=== PATIENT | male | born 1940 | race Caucasian/White ===

== ENCOUNTER 2017-05-01 16:16 | Emergency (ER) | payer MEDICARE, OTHER ==
[2017-05-01 16:22] VITALS: BP 111/60
--- NOTE | 2017-05-01 16:27 | ER Document Report ---
ED Medical Screen (RME) - General Chief Complaint: Hand Swelling Stated Complaint: SWOLLEN LEFT HAND Time Seen by Provider: 05/01/17 16:24 Mode of Arrival: Ambulatory Information source: Patient, Relative TRAVEL OUTSIDE OF THE [place] IN LAST 30 DAYS: No - HPI Patient complains to provider of: swelling L hand Onset: This morning - Pt. has h/o dementia and developed swelling of his L hand yessterday. Denies trauma, insect bite or sting - Related Data Allergies/Adverse Reactions: No Known Allergies Allergy (Verified 05/01/17 16:21) Past Medical History - Past Medical History Cardiac Medical History: Reports: Hx Coronary Artery Disease, Hx Hypertension Denies: Hx Heart Attack Pulmonary Medical History: Denies: Hx Asthma, Hx Bronchitis, Hx COPD, Hx Pneumonia Neurological Medical History: Denies: Hx Cerebrovascular Accident, Hx Seizures Renal/ Medical History: Reports: Hx Benign Prostatic Hyperplasia. Denies: Hx Peritoneal Dialysis Musculoskeltal Medical History: Reports Hx Arthritis Psychiatric Medical History: Reports: Hx Dementia - Son says the patient's developing some memory issues - Immunizations Hx Diphtheria, Pertussis, Tetanus Vaccination: Yes Physical Exam - Vital signs Vitals: Temp Pulse Resp BP Pulse Ox 97.8 F 103 H 18 111/60 94 05/01/17 16:21 05/01/17 16:21 05/01/17 16:21 05/01/17 16:21 05/01/17 16:21 Course - Vital Signs Vital signs: Temp Pulse Resp BP Pulse Ox 97.8 F 103 H 18 111/60 94 05/01/17 16:21 05/01/17 16:21 05/01/17 16:21 05/01/17 16:21 05/01/17 16:21
[2017-05-01 16:56] LABS: ABSOLUTE LYMPHOCYTES (AUTO) 0.7 10^3/uL (0.5-4.7); ABSOLUTE MONOCYTES (AUTO) 0.6 10^3/uL (0.1-1.4); ABSOLUTE NEUT (AUTO) 8.2 10^3/uL (1.7-8.2); BASOPHILS % (AUTO) 0.1 % (0-2); EOSINOPHILS % (AUTO) 0.2 % (0-6); HEMATOCRIT 43.3 % (37.9-51.0); HEMOGLOBIN 14.5 g/dL (13.5-17.0); HGB HCT DIFFERENCE 0.2; LYMPHOCYTES % (AUTO) 6.9 % (13-45); MEAN CORPUSCULAR HEMOGLOBIN 31.3 pg (27.0-33.4); MEAN CORPUSCULAR HGB CONC 33.5 g/dL (32.0-36.0); MEAN CORPUSCULAR VOLUME 93 fl (80-97); MONOCYTES % (AUTO) 6.4 % (3-13); RED BLOOD COUNT 4.64 10^6/uL (4.35-5.55); RED CELL DISTRIBUTION WIDTH 14.3 % (11.5-14.0); SEGMENTED NEUTROPHILS % (AUTO) 86.4 % (42-78); WHITE BLOOD COUNT 9.5 10^3/uL (4.0-10.5)
[2017-05-01 17:11] LABS: ALANINE AMINOTRANSFERASE 270 U/L (21-72); ALBUMIN 4.1 g/dL (3.5-5.0); ALKALINE PHOSPHATASE 165 U/L (38-126); ANION GAP 14 (5-19); ASPARTATE AMINO TRANSFERASE 293 U/L (17-59); BILIRUBIN,DIRECT 1.2 mg/dL (0.0-0.4); BILIRUBIN,TOTAL 2.3 mg/dL (0.2-1.3); BLOOD UREA NITROGEN 13 mg/dL (7-20); CALCIUM 9.2 mg/dL (8.4-10.2); CARBON DIOXIDE 25 mmol/L (22-30); CHLORIDE 101 mmol/L (98-107); CREATININE RESULT 0.88 mg/dL (0.52-1.25); GLUCOSE 107 mg/dL (75-110); SODIUM 139.6 mmol/L (137-145); TOTAL PROTEIN 6.6 g/dL (6.3-8.2)
--- NOTE | 2017-05-01 17:47 | ER Document Report ---
ED Hand/Wrist Injury - General Mode of Arrival: Ambulatory Information source: Patient, Relative TRAVEL OUTSIDE OF THE [place] IN LAST 30 DAYS: No <DEON ABLRIGHT - Last Filed: 05/01/17 20:51> <MARCELO RICO - Last Filed: 05/01/17 22:47> - General Chief Complaint: Hand Swelling Stated Complaint: SWOLLEN LEFT HAND Time Seen by Provider: 05/01/17 16:24 - HPI Notes: Patient is a 76-year-old male presented emergency department for swelling of his left hand. Patient symptoms onset yesterday and he thought he got bit by something. Patient treated his hand with Benadryl and ice however it is more swollen today. Patient's hand is also itchy on the palmar aspect. Patient denies any fever. Patient is taking a pancreas enzyme. Patient has no known allergies. (DEON ALBRIGHT) Family is concerned over possibility of a fall given the swelling and the tenderness. (MARCELO RICO) - Related Data Allergies/Adverse Reactions: No Known Allergies Allergy (Verified 05/01/17 16:21) Past Medical History - General Information source: Patient, Relative - Social History Smoking Status: Former Smoker Chew tobacco use (# tins/day): No Frequency of alcohol use: None Drug Abuse: None Family History: Reviewed & Not Pertinent Patient has suicidal ideation: No Patient has homicidal ideation: No - Past Medical History Cardiac Medical History: Reports: Hx Coronary Artery Disease, Hx Hypertension Renal/ Medical History: Reports: Hx Benign Prostatic Hyperplasia Musculoskeltal Medical History: Reports Hx Arthritis Psychiatric Medical History: Reports: Hx Dementia - Son says the patient's developing some memory issues Surgical Hx: Negative - Immunizations Hx Diphtheria, Pertussis, Tetanus Vaccination: Yes <DEON ALBRIGHT - Last Filed: 05/01/17 20:51> Review of Systems - Review of Systems Constitutional: denies: Fever Gastrointestinal: denies: Abdominal pain Musculoskeletal: See HPI Skin: See HPI <DEON ALBRIGHT - Last Filed: 05/01/17 20:51> Physical Exam - Vital signs Interpretation: Normal <DEON ALBRIGHT - Last Filed: 05/01/17 20:51> <MARCELO RICO - Last Filed: 05/01/17 22:47> - Vital signs Vitals: Temp Pulse Resp BP Pulse Ox 97.8 F 103 H 18 111/60 94 05/01/17 16:21 05/01/17 16:21 05/01/17 16:21 05/01/17 16:21 05/01/17 16:21 - Notes Notes: GENERAL: Alert, interacts well. No acute distress. HEAD: Normocephalic, atraumatic. EYES: Pupils equal, round, and reactive to light. Extraocular movements intact. ENT: Oral mucosa moist, tongue midline. NECK: Full range of motion. Supple. Trachea midline. LUNGS: Clear to auscultation bilaterally, no wheezes, rales, or rhonchi. No respiratory distress. HEART: Regular rate and rhythm. No murmurs, gallops, or rubs. ABDOMEN: Soft, non-tender. Non-distended. Bowel sounds present in all 4 quadrants. EXTREMITIES: Moves all 4 extremities spontaneously. Left hand has superficial abrasions over the palm. Thumb cannot approximate the fifth digit. Weakness with okay sign. Dorsal aspect of the palm has swelling and is warm, palm has no streaking. Tender to palpate over the 1st MCP. Ecchymosis to the thenar eminence extending to the distal radius. No tenderness over the anatomic snuff box. NEUROLOGICAL: Alert and oriented x3. Normal speech. PSYCH: Normal affect, normal mood. SKIN: Warm, dry, normal turgor. (DEON ALBRIGHT) Course - Laboratory Result Diagrams: 05/01/17 16:35 05/01/17 16:35 <DEON ALBRIGHT - Last Filed: 05/01/17 20:51> - Laboratory Result Diagrams: 05/01/17 16:35 05/01/17 16:35 <MARCELO RICO - Last Filed: 05/01/17 22:47> - Re-evaluation Re-evalutation: 05/01/17 17:51 X-ray shows chronic degenerative changes but no signs of acute fracture, the patient is quite tender over the area of ecchymoses on the palmar aspect of his left first metacarpal phalangeal joint. Patient will be placed in a sling to help to elevate the hand that appears to have a cellulitis, patient is to follow -up with orthopedics within the next week, patient is started on Augmentin, patient will be discharged to home and will return for fevers, increasing pain, redness, swelling. 05/01/17 17:52 CBC unremarkable, CMP does show elevated total and direct bilirubin as well as LFTs, family members state patient has a known history of problems with his pancreas and tends to have these abnormal findings and takes pancreas enzymes. Patient is not having any symptoms that would merit further investigation at this time including jaundice, fever, vomiting or abdominal pain. (MARCELO RICO) - Vital Signs Vital signs: Temp Pulse Resp BP Pulse Ox 97.8 F 103 H 18 111/60 94 05/01/17 16:21 05/01/17 16:21 05/01/17 16:21 05/01/17 16:21 05/01/17 16:21 - Laboratory Laboratory results interpreted by me: 05/01/17 05/01/17 16:35 16:35 RDW 14.3 H Plt Count 130 L Seg Neutrophils % 86.4 H Lymphocytes % 6.9 L Total Bilirubin 2.3 H Direct Bilirubin 1.2 H AST 293 H ALT 270 H Alkaline Phosphatase 165 H Procedures - Immobilization Left Wrist Pre-Proc Neuro Vasc Exam: Normal Immobilizer type: Sling Performed by: RN Post-Proc Neuro Vasc Exam: Normal, Unchanged from pre-exam Alignment checked and good: Yes <MARCELO RICO - Last Filed: 05/01/17 22:47> Discharge <DEON ALBRIGHT - Last Filed: 05/01/17 20:51> <MARCELO RICO - Last Filed: 05/01/17 22:47> - Discharge Clinical Impression: Cellulitis of hand without finger or thumb, left Contusion of left hand including fingers Qualifiers: Encounter type: initial encounter Qualified Code(s): S60.222A - Contusion of left hand, initial encounter Condition: Stable Disposition: HOME, SELF-CARE Additional Instructions: Cellulitis You have an infection of your skin and underlying soft tissues called cellulitis. This is due to bacteria, which can enter through any break in the skin, or even through an irritated hair follicle. Untreated, cellulitis will usually worsen. Antibiotics are required. Usually, warm packs or warm soaks, and elevation of the infected area are recommended. You should start getting better within 24 to 36 hours. Most infections respond quickly to the right medication. Follow-up care is important, however, to check for abscess (boil) formation, unsuspected foreign body, or resistant infection. If you develop fever, chills, or if the area of infection is becoming rapidly more swollen or painful, call the doctor at once. Keep your hand elevated, use ice, return to the emergency department for increasing pain, increasing swelling, fevers or increasing redness. Please follow-up with orthopedics as an outpatient should the pain continue in your thumb as we may have missed a very small fracture today. Prescriptions: Amoxicillin/Potassium Clav [Amox-Clav 875-125 mg Tablet] 1 each PO BID #14 tablet Referrals: SONYA MONTIEL DO [ACTIVE STAFF] - Follow up in 3-5 days Scribe Attestation: 05/01/17 22:47 I personally performed the services described in the documentation, reviewed and edited the documentation which was dictated to the scribe in my presence, and it accurately records my words and actions. (MARCELO RICO) Scribe Documentation - Scribe Written by Anna:: Anna Aguilar 05/01/2017 21:12 acting as scribe for :: Rick <DEON ALBRIGHT - Last Filed: 05/01/17 20:51>
--- NOTE | 2017-05-01 17:51 | RADIOLOGY REPORT (SQ) ---
EXAM DESCRIPTION: HAND LEFT 3 VIEWS COMPLETED DATE/TIME: 05/01/2017 4:50 pm REASON FOR STUDY: Swelling L hand COMPARISON: None. EXAM PARAMETERS: NUMBER OF VIEWS: Three views. TECHNIQUE: AP, lateral and oblique radiographic images acquired of the left hand. LIMITATIONS: None. FINDINGS: MINERALIZATION: Normal. BONES: No acute fracture or dislocation. No worrisome bone lesions. Chronic carpal and 1st metacarp al phalangeal degenerative changes. JOINTS: No effusions. SOFT TISSUES: Mild dorsal soft tissue swelling. No foreign body. OTHER: No other significant finding. IMPRESSION: BACKGROUND DEGENERATIVE CHANGES. NO RADIOGRAPHIC EVIDENCE OF ACUTE INJURY. TECHNICAL DOCUMENTATION: JOB ID: [id number] [employer]- All Rights Reserved
== END 2017-05-01 18:05 | disposition home or self-care (01) ==
LOC: ER 16:16
DX: L03.114 Cellulitis of left upper limb (principal); S60.222A Contusion of left hand, initial encounter; M79.89 Other specified soft tissue disorders; X58.XXXA Exposure to other specified factors, initial encounter; I25.10 Atherosclerotic heart disease of native coronary artery without angina pectoris; I10 Essential (primary) hypertension; F03.90 Unspecified dementia, unspecified severity, without behavioral disturbance, psychotic disturbance, mood disturbance, and anxiety; Z87.891 Personal history of nicotine dependence
CPT/HCPCS: 36415; 80053; 85025; 99284

== ENCOUNTER → 2017-06-14 | Outpatient (CLI) | payer MEDICARE, OTHER ==
[2017-06-14 12:47] LABS: ABSOLUTE EOSINOPHILS # (AUTO) 0.3 10^3/uL (0.0-0.6); ABSOLUTE LYMPHOCYTES (AUTO) 1.9 10^3/uL (0.5-4.7); ABSOLUTE MONOCYTES (AUTO) 0.5 10^3/uL (0.1-1.4); ABSOLUTE NEUT (AUTO) 2.1 10^3/uL (1.7-8.2); BASOPHILS % (AUTO) 0.5 % (0-2); HEMATOCRIT 40.3 % (37.9-51.0); HEMOGLOBIN 14.1 g/dL (13.5-17.0); LYMPHOCYTES % (AUTO) 38.9 % (13-45); MEAN CORPUSCULAR HEMOGLOBIN 31.7 pg (27.0-33.4); MEAN CORPUSCULAR HGB CONC 35.1 g/dL (32.0-36.0); MEAN CORPUSCULAR VOLUME 90 fl (80-97); RED BLOOD COUNT 4.46 10^6/uL (4.35-5.55); RED CELL DISTRIBUTION WIDTH 14.1 % (11.5-14.0); SEGMENTED NEUTROPHILS % (AUTO) 44.6 % (42-78); WHITE BLOOD COUNT 4.8 10^3/uL (4.0-10.5)
[2017-06-14 13:11] LABS: ALANINE AMINOTRANSFERASE 30 U/L (21-72); ALBUMIN 4.1 g/dL (3.5-5.0); ALKALINE PHOSPHATASE 48 U/L (38-126); ANION GAP 11 (5-19); ASPARTATE AMINO TRANSFERASE 25 U/L (17-59); BILIRUBIN,DIRECT 0.4 mg/dL (0.0-0.4); BILIRUBIN,TOTAL 0.6 mg/dL (0.2-1.3); BLOOD UREA NITROGEN 10 mg/dL (7-20); CALCIUM 9.6 mg/dL (8.4-10.2); CARBON DIOXIDE 30 mmol/L (22-30); CHLORIDE 105 mmol/L (98-107); CREATININE RESULT 0.93 mg/dL (0.52-1.25); GLUCOSE 97 mg/dL (75-110); LIPASE 479.7 U/L (23-300); POTASSIUM 5.1 mmol/L (3.6-5.0); SODIUM 145.8 mmol/L (137-145); TOTAL PROTEIN 6.4 g/dL (6.3-8.2)
== END ==
LOC: OD 12:05
PROVIDERS: ATTEND Internal Medicine
DX: I10 Essential (primary) hypertension (principal); N40.0 Benign prostatic hyperplasia without lower urinary tract symptoms; E78.5 Hyperlipidemia, unspecified; K85.10 Biliary acute pancreatitis without necrosis or infection; K21.0 Gastro-esophageal reflux disease with esophagitis; R97.20 Elevated prostate specific antigen [PSA]
CPT/HCPCS: 36415; 80053; 83690; 83735; 84153; 84443; 85025

== ENCOUNTER → 2018-10-28 | Outpatient (CLI) | payer MEDICARE, OTHER | LOC: OD 09:20 | PROVIDERS: ATTEND Family Medicine Geriatric Medicine | DX: I10 Essential (primary) hypertension (principal); K21.0 Gastro-esophageal reflux disease with esophagitis; N40.0 Benign prostatic hyperplasia without lower urinary tract symptoms; Z53.8 Procedure and treatment not carried out for other reasons ==

== ENCOUNTER → 2018-11-07 | Outpatient (CLI) | payer MEDICARE, OTHER ==
[2018-11-07 10:07] LABS: ABSOLUTE EOSINOPHILS # (AUTO) 0.3 10^3/uL (0.0-0.6); ABSOLUTE MONOCYTES (AUTO) 0.5 10^3/uL (0.1-1.4); ABSOLUTE NEUT (AUTO) 2.4 10^3/uL (1.7-8.2); BASOPHILS % (AUTO) 0.6 % (0-2); EOSINOPHILS % (AUTO) 5.1 % (0-6); HEMATOCRIT 40.7 % (37.9-51.0); HEMOGLOBIN 14.2 g/dL (13.5-17.0); LYMPHOCYTES % (AUTO) 38.1 % (13-45); MEAN CORPUSCULAR HEMOGLOBIN 31.4 pg (27.0-33.4); MEAN CORPUSCULAR HGB CONC 34.9 g/dL (32.0-36.0); MEAN CORPUSCULAR VOLUME 90 fl (80-97); MONOCYTES % (AUTO) 10.2 % (3-13); PLATELET COUNT 162 10^3/uL (150-450); RED BLOOD COUNT 4.53 10^6/uL (4.35-5.55); RED CELL DISTRIBUTION WIDTH 13.5 % (11.5-14.0); TOTAL CELLS COUNTED % (AUTO) 100 %; WHITE BLOOD COUNT 5.2 10^3/uL (4.0-10.5)
[2018-11-07 10:37] LABS: ALANINE AMINOTRANSFERASE 27 U/L (21-72); ALBUMIN 4.2 g/dL (3.5-5.0); ALKALINE PHOSPHATASE 55 U/L (38-126); ANION GAP 9 (5-19); ASPARTATE AMINO TRANSFERASE 22 U/L (17-59); BILIRUBIN,DIRECT 0.3 mg/dL (0.0-0.4); BILIRUBIN,TOTAL 0.5 mg/dL (0.2-1.3); BLOOD UREA NITROGEN 16 mg/dL (7-20); CALCIUM 9.7 mg/dL (8.4-10.2); CARBON DIOXIDE 30 mmol/L (22-30); CHLORIDE 102 mmol/L (98-107); GLUCOSE 80 mg/dL (75-110); SODIUM 140.6 mmol/L (137-145); TOTAL PROTEIN 6.5 g/dL (6.3-8.2)
== END ==
LOC: OD 09:19
PROVIDERS: ATTEND Internal Medicine
DX: I10 Essential (primary) hypertension (principal); K21.0 Gastro-esophageal reflux disease with esophagitis; N40.0 Benign prostatic hyperplasia without lower urinary tract symptoms
CPT/HCPCS: 36415; 80053; 84153; 85025